=== PATIENT | female | born 1990 | race American Indian/Alaskan Native ===

== ENCOUNTER 2019-02-26 00:44 | Observation (INO) | payer MEDICAID, OTHER, SELFPAY ==
[2019-02-26 01:00] VITALS: BP 128/82; PULSE 98; RESP 16; TEMP 36.7; O2SAT 100
--- NOTE | 2019-02-26 01:05 | DI.US.S_ITS ---
PROCEDURE: US OB >= 14 WEEKS FETUS INDICATIONS: PAIN; NO CARE OUTSIDE/PRIOR DATING DATA: Last menstrual period (LMP): Unknown.. LMP-based estimated date of delivery (FAM): N./A.. First dating scan (date and location): 02/26/19. Estimated date of delivery (FAM) from first dating scan: 04/22/19. TECHNIQUE: Real-time scanning was performed of the fetus, with image documentation and biometric measurements. Endovaginal scanning: No COMPARISON: None. FINDINGS: General: A single living intrauterine gestation is present. Presentation: Breech. Placenta: Placental position is anterior, without previa. Amniotic fluid index: 14.8 cm, normal range is 5-24 cm. heart rate: 153 beats per minute. Maternal cervical canal: 3.9 cm long. Normal lower limit is 2.5 cm. biometrics: Biparietal diameter: 31 weeks 2 days Head circumference: 32 weeks 6 days Abdominal circumference: 33 weeks Femur length: 31 weeks 4 days Estimated gestational age from initial scan: not applicable. Composite gestational age from present scan: 32 weeks 1 day Estimated weight and percentile: 1965 g. Measurement variability for biometric dating: +/- 7 days from 14 weeks to 15 weeks 6 days gestation, +/- 10 days from 16 weeks to 21 weeks 6 days gestation, +/- 2 weeks from 22 weeks to 27 weeks 6 days gestation, +/- 3 weeks for 28 weeks gestation or later. weight reference: 4500 g or EFW >90/95% is considered macrosomia or large for gestational age. EFW <10% is small for gestational age. EFW 5% or less is considered intra-uterine growth restriction. No anatomic survey was performed. IMPRESSION: 1. Single living IUP with mean composite gestational age of 32 weeks 1 day corresponding to ultrasound FAM 04/22/19. 2. No placental abruption. Dictated by: Jamari CLANCY Interpreted: Phill Murrell MD on 02/26/2019 at 8:57 Approved by: Phill Murrell M.D. on 02/26/2019 at 18:30
--- NOTE | 2019-02-26 01:14 | ED.PREGNANCY ---
HPI - General Chief complaint: Abdominal Pain Stated complaint: /abdominal pain/nausous Time Seen by Provider: 02/26/19 01:05 Source: patient Mode of arrival: ambulatory Limitations: no limitations History of Present Illness HPI Narrative: Patient is a 28-year-old female who presents with abdominal pain and back pain. She states that she is . She actually has no idea how far along she is. This is her 3rd she has 2 daughters she did not know she was with either. the 1st 1 she did not know until 7 months along. She has been getting the Depo shot her last menstrual period was in June. She was recently incarcerated for 2 weeks she was released 5 days ago they did a urine while she was there and it was positive. That was the 1st of her knowing she was . She says that she has been having abdominal pain and back pain since starting last night and has progressively gotten worse may be even more frequent. She denies any vaginal bleeding discharge. She also has some chest discomfort but denies shortness of breath or heart palpitations. MD Complaint: abdominal pain Pain Consistency: intermittent Location: abdomen and other (Back) Hx Last Menstrual Period: june 2018 Patient : Yes Related Data Previous Rx's Medication Instructions Recorded hydrocortisone acetate [Anusol-HC] 25 mg R BID #30 supp 07/31/17 Allergies Allergy/AdvReac Type Severity Reaction Status Date / Time Penicillins Allergy Verified 02/26/19 01:10 Review of Systems Review of Systems ROS Unobtainable: All systems reviewed & are unremarkable except as noted in HPI and below Constitutional Denies chills, Denies fever(s), Denies lethargy and Denies weakness Eyes Denies change in vision, Denies eye discharge, Denies irritation and Denies loss of vision Cardiovascular Denies chest pain, Denies irregular heart rhythm, Denies lightheadedness, Denies palpitations, Denies dyspnea, Denies dyspnea on exertion and Denies orthopnea Respiratory Denies cough, Denies dyspnea, Denies dyspnea on exertion and Denies wheezing Gastrointestinal Gastrointestinal: Reports as per HPI and Reports abdominal pain Musculoskeletal Denies back pain, Denies muscle weakness, Denies numbness and Denies tingling Integumentary/Breasts Denies pruritus, Denies erythema, Denies rash and Denies wounds Neurologic Denies loss of vision, Denies numbness, Denies tingling and Denies weakness Endocrine Denies palpitations Allergic/Immunologic Denies wheezing PMFSH - Past Medical History Medical history: Reports no medical history Hx Last Menstrual Period: june 2018 Patient : Yes Exam Initial Vital Signs Initial Vital Signs: Vital Signs Temperature 98.1 F 02/26/19 01:00 Pulse Rate 98 H 02/26/19 01:00 Respiratory Rate 16 02/26/19 01:00 Blood Pressure 128/82 02/26/19 01:00 Pulse Oximetry 100 02/26/19 01:00 GENERAL: Well-appearing, well-nourished and in no acute distress. HEENT: Head atraumatic,EOMI, pupils reactive, face symmetric, moist mucous membranes CARDIOVASCULAR: Regular rate and rhythm without murmurs, rubs or gallops. RESPIRATORY: Breath sounds equal bilaterally, no wheezes rales or rhonchi. ABDOMEN: Soft, gravid, fetus is felt in abdomen. Specifically in right upper quadrant area. Head is not felt in the pelvic area. Abdomen overall is slightly tender across lower part. More tender in the left lower quadrant. No guarding or rebound. EXTREMITIES: Normal range of motion, no clubbing or edema. Neurovascularly intact NEUROLOGICAL: Alert and oriented x4.Normal gait and speech. Cranial nerves II through XII grossly intact. SKIN: Warm, dry, no laceration, no petechiae, no rashes or lesions. Course Orders Ordered: ED Orders 02/26/19 ABO RH Type Stat Complete Blood Count AUTO DIFF Stat Comprehensive Metabolic Panel Stat HIV 1 and 2 Antibody Stat Hepatitis C Virus Antibody Stat Urine Chlamydia Gonorrhea PCR Stat Varicella IgG Antibody Stat 02/26/19 01:05 US OB >= 14 weeks Fetus Stat EKG-12 Lead Stat 02/26/19 01:19 Test Urine Stat Urinalysis and Microscopic Stat Urine Culture Stat Urine Drug Screen, Rapid Stat Vital Signs - 8 hr 02/26/19 01:00 Temperature 98.1 F Pulse Rate 98 H Respiratory Rate 16 Blood Pressure 128/82 Pulse Oximetry 100 MDM - OB/Uterine Contractions Lab Data Attestation: I reviewed the patient's lab results. Lab Results 02/26/19 02/26/19 02/26/19 Range/Units 01:19 01:19 01:19 Urine Color Yellow Urine Appearance Clear Urine pH 7.0 (4.5-8.0) Ur Specific [place] 1.010 (1.000-1.035) Urine Protein Negative (Negative) Urine Glucose (UA) Negative (Negative) g/dL Urine Ketones Negative (NEGATIVE) Urine Occult Blood Trace-lysed (Negative) Urine Nitrate Negative (Negative) Urine Bilirubin Negative (NEGATIVE) Urine Urobilinogen 0.2 (0.2) E.U./dL Ur Leukocyte Esterase 3+ H (NEGATIVE) Urine RBC None seen (0-5/HPF) Urine WBC 0-1/hpf (0-5/HPF) Ur Squamous Epith Cells 1-5 /hpf (0-5/HPF) Urine Bacteria Few (2-10) H (None) Ur Culture Indicated? Specimen cultured Micro UA Comment * Urine Test Positive H (Negative) Urine Opiates Screen Negative (Negative) Ur Oxycodone Screen Negative (Negative) Urine Methadone Screen Negative (Negative) Ur Barbiturates Screen Negative (Negative) U Tricyclic Antidepress Negative (Negative) Ur Phencyclidine Scrn Negative (Negative) Ur Amphetamines Screen Positive H (Negative) U Methamphetamines Scrn Positive H (Negative) Ur MDMA Scrn (Ecstasy) Negative (Negative) U Benzodiazepines Scrn Negative (Negative) Urine Cocaine Screen Negative (Negative) U Marijuana (THC) Screen Negative (Negative) Imaging Data 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 Average ultrasound age 32 weeks 1 day. Estimated date of delivery is 04/22/2019. No placental abruption ECG Data Attestation: I personally reviewed and interpreted this ECG as follows: Prior ECG tracings: not available for review Interpretation: Normal sinus rhythm rate 86 P are interval [address] changes no T-wave inversion. MDM Narrative Medical decision making narrative: Patient is gravid. Fetus felt in abdomen. No care high-risk incarceration. She delivered early with on previous pregnancies and she has been having abdominal pain and back pain ongoing since at least yesterday. I have spoken with center who agrees to see her recommend calling ultrasound in. They will call on-call OB. (US met patient in labor and delivery) Discharge Plan Departure Patient Disposition: Admitted as Observation Clinical Impression: , Abdominal pain affecting Discharge Date/Time: 02/26/19 01:29 Interventions: ED Discharge Assessment Last Done: 02/26/19 01:24 Admit Date/Time: 02/26/19 01:29 Admit Provider: Graciela Serrato
[2019-02-26 01:28] LABS: Pregnancy Test Urine Positive (Negative)
[2019-02-26 01:41] LABS: RBC Urine None Seen (0-5/HPF)
[2019-02-26 01:43] LABS: Appearance Urine UA CLEAR; Bilirubin Urine UA NEGATIVE (NEGATIVE); Color Urine UA YELLOW; Glucose Urine UA NEGATIVE (Negative); Ketones Urine UA NEGATIVE (NEGATIVE); Leukocyte Esterase Urine UA 3+ (NEGATIVE); Nitrite Urine UA NEGATIVE (Negative); Occult Blood Urine UA TRACE-LYSED (Negative); Protein Urine UA NEGATIVE (Negative); Urobilinogen Urine UA 0.2 E.U./dL (0.2)
[2019-02-26 01:49] LABS: Urine Amphetamines Positive (Negative); Urine Barbiturates Negative (Negative); Urine Benzodiazepines Negative (Negative); Urine Cocaine Negative (Negative); Urine MDMA Negative (Negative); Urine Methadone Negative (Negative); Urine Methamphetamines Positive (Negative); Urine Morphine/Opi cutoff 2000 Negative (Negative); Urine Oxycodone Negative (Negative); Urine Phencyclidine Negative (Negative); Urine Tetrahydrocannabinol Negative (Negative); Urine Tricyclic Antidepressant Negative (Negative)
--- NOTE | 2019-02-26 02:13 | PM.OBTRLD ---
Visit Information Visit Information Date of evaluation: 02/26/19 On-call OB Provider: Graciela Serrato Reason for Evaluation: Yes non-stress test non-stress test reason: other (abdominal pain, unknown gestation) Comments/Additional reasons for admission: Patient is a 28-year-old at unknown gestation with no care. She presented to the ER with abdominal pain, nausea and vomiting for 1 day. Urine test was positive in the ER. She was then transferred to the center. LMP sometime in June 2018. She states she had a Depo shot in July 2018. She just got out of correction 5 years ago after being incarcerated 2 weeks. In correction she was told she was . Denies drug use. She has 2 children who are in state custody. Children are 6 years old and 1-1/2 years old. This 6-year-old lives with the patient's grandmother and the 1-1/2-year-old lives in [place]. Both daughters were delivered [facility]. Her first daughter was born at 37 weeks (November 2012) and her second born at 38 weeks (May 2017). 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 Her first she did not find out she was until 7 months. Second she was 4 months when she found out. She states she called the clinic after she got out of correction to schedule an OB appointment and was told she would receive a call back sometime this week. Vital Signs Vital Signs: Vital Signs - 8 hr 02/26/19 01:00 Temperature 98.1 F Pulse Rate 98 H Respiratory Rate 16 Blood Pressure 128/82 Pulse Oximetry 100 PFSH Medical History Chronic back pain (Chronic) Surgical History History of cholecystectomy (Resolved) Social History (Updated 02/26/19 @ 02:27 by Graciela Serrato DO) marital status: unmarried,single number of children: 2 Smoking Status: Former smoker alcohol intake: former substance use type: amphetamines and methamphetamine Social History marital status: unmarried,single number of children: 2 Smoking Status: Former smoker alcohol intake: former substance use type: amphetamines and methamphetamine Review of Systems Constitutional Constitutional: Denies fever(s) Gastrointestinal Gastrointestinal: Reports abdominal pain, Denies change in bowel habits, Reports nausea and Reports vomiting Exam Vital Signs (past 8 hours): - 02/26/19 01:00 Temperature 98.1 F Pulse Rate 98 H Respiratory Rate 16 Blood Pressure 128/82 Pulse Oximetry 100 Oxygen Delivery Method Room Air Const General: cooperative, healthy appearing and comfortable [facility] Head: normal to inspection Ears: hearing grossly normal bilaterally Nose: external nose normal Mouth: oral mucosae normal Eyes General: appearance normal, both eyes and all related structures Neck Neck: normal visual inspection and supple Resp Effort & Inspection: normal respiratory effort Auscultation: clear to auscultation bilaterally, no rales and no wheezes Cardio Rate: regular rate Rhythm: regular rhythm Heart Sounds: S1 normal, S2 normal and no murmurs GI Other: Gravid Uterus Location (Fundal Height): 32 Presentation: full/complete breech Back/Spine/Pelvis Back: normal to inspection Skin General: no rashes or lesions noted Neuro General: alert, awake and oriented x3 Cognition: abnormal cognition (rambling speech) Speech: speech normal Objective Labs Result Diagrams: 02/26/19 02:26 02/26/19 02:26 Labs: Laboratory Results - last 24 hr 02/26/19 02/26/19 02/26/19 01:19 01:19 01:19 Urine Color Yellow Urine Appearance Clear Urine pH 7.0 Ur Specific [place] 1.010 Urine Protein Negative Urine Glucose (UA) Negative Urine Ketones Negative Urine Occult Blood Trace-lysed Urine Nitrate Negative Urine Bilirubin Negative Urine Urobilinogen 0.2 Ur Leukocyte Esterase 3+ H Urine Test Positive H Urine Opiates Screen Negative Ur Oxycodone Screen Negative Urine Methadone Screen Negative Ur Barbiturates Screen Negative U Tricyclic Antidepress Negative Ur Phencyclidine Scrn Negative Ur Amphetamines Screen Positive H U Methamphetamines Scrn Positive H Ur MDMA Scrn (Ecstasy) Negative U Benzodiazepines Scrn Negative Urine Cocaine Screen Negative U Marijuana (THC) Screen Negative Evaluation Evaluation Baseline heart rate: 130 Variability: Moderate (11-25) monitor accelerations: Present monitor decelerations: Absent Uterine Contraction Intensity: Mild Laboratory results: Laboratory Tests 02/26/19 02/26/19 02/26/19 01:19 01:19 01:19 Urine Color Yellow Urine Appearance Clear Urine pH 7.0 Ur Specific [place] 1.010 Urine Protein Negative Urine Glucose (UA) Negative Urine Ketones Negative Urine Occult Blood Trace-lysed Urine Nitrate Negative Urine Bilirubin Negative Urine Urobilinogen 0.2 Ur Leukocyte Esterase 3+ H Urine Test Positive H Urine Opiates Screen Negative Ur Oxycodone Screen Negative Urine Methadone Screen Negative Ur Barbiturates Screen Negative U Tricyclic Antidepress Negative Ur Phencyclidine Scrn Negative Ur Amphetamines Screen Positive H U Methamphetamines Scrn Positive H Ur MDMA Scrn (Ecstasy) Negative U Benzodiazepines Scrn Negative Urine Cocaine Screen Negative U Marijuana (THC) Screen Negative Diagnosis, Plan/Disposition Final Diagnosis (1) 32 weeks gestation of : Current Visit: Yes Status: Acute (2) No care in current : Current Visit: Yes Status: Acute (3) Substance abuse affecting in third trimester, antepartum: Current Visit: Yes Status: Acute Plan/Disposition Plan: 28-year-old at approximately 32 weeks gestation based on ultrasound today. Fetus is breech currently. complicated by no care and substance abuse. Urine drug screen was positive for methamphetamine however patient denied use. Patient presented with abdominal pain, nausea and vomiting. Cervix was 3.9 cm on ultrasound which was reassuring. She was having mild contractions on the monitor which decreased with hydration and nifedipine. Patient felt much better after toast and water with improvement in pain. Urine was negative for signs of infection. labs are pending. Patient reportedly has already called the clinic to establish care. Reminded her to call again when the clinic opens today. OB Disposition: home
--- NOTE | 2019-02-26 02:18 | P.TNLD_ITS ---
Visit Information Visit Information Date of evaluation: 02/26/19 On-call OB Provider: Graciela Serrato Reason for Evaluation: Yes non-stress test non-stress test reason: other (abdominal pain, unknown gestation) Comments/Additional reasons for admission: Patient is a 28-year-old at unknown gestation with no care. She presented to the ER with abdominal pain, nausea and vomiting for 1 day. Urine test was positive in the ER. She was then transferred to the center. LMP sometime in June 2018. She states she had a Depo shot in July 2018. She just got out of [facility] 5 years ago after being incarcerated 2 weeks. In [facility] she was told she was . Denies drug use. She has 2 children who are in state custody. Children are 6 years old and 1-1/2 years old. This 6-year-old lives with the patient's grandmother and the 1-1/2-year-old lives in [place]. Both daughters were delivered [facility]. Her first daughter was born at 37 weeks (November 2012) and her second born at 38 weeks (May 2017). 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 Her first she did not find out she was until 7 months. Second she was 4 months when she found out. She states she called the clinic after she got out of [facility] to schedule an OB appointment and was told she would receive a call back sometime this week. Vital Signs Vital Signs: Vital Signs - 8 hr 02/26/19 01:00 Temperature 98.1 F Pulse Rate 98 H Respiratory Rate 16 Blood Pressure 128/82 Pulse Oximetry 100 PFSH Medical History Chronic back pain (Chronic) Surgical History History of cholecystectomy (Resolved) Social History (Updated 02/26/19 @ 02:27 by Graciela Serrato DO) marital status: unmarried,single number of children: 2 Smoking Status: Former smoker alcohol intake: former substance use type: amphetamines and methamphetamine Social History marital status: unmarried,single number of children: 2 Smoking Status: Former smoker alcohol intake: former substance use type: amphetamines and methamphetamine Review of Systems Constitutional Constitutional: Denies fever(s) Gastrointestinal Gastrointestinal: Reports abdominal pain, Denies change in bowel habits, Reports nausea and Reports vomiting Exam Vital Signs (past 8 hours): - 02/26/19 01:00 Temperature 98.1 F Pulse Rate 98 H Respiratory Rate 16 Blood Pressure 128/82 Pulse Oximetry 100 Oxygen Delivery Method Room Air Const General: cooperative, healthy appearing and comfortable [facility] Head: normal to inspection Ears: hearing grossly normal bilaterally Nose: external nose normal Mouth: oral mucosae normal Eyes General: appearance normal, both eyes and all related structures Neck Neck: normal visual inspection and supple Resp Effort & Inspection: normal respiratory effort Auscultation: clear to auscultation bilaterally, no rales and no wheezes Cardio Rate: regular rate Rhythm: regular rhythm Heart Sounds: S1 normal, S2 normal and no murmurs GI Other: Gravid Uterus Location (Fundal Height): 32 Presentation: full/complete breech Back/Spine/Pelvis Back: normal to inspection Skin General: no rashes or lesions noted Neuro General: alert, awake and oriented x3 Cognition: abnormal cognition (rambling speech) Speech: speech normal Objective Labs Result Diagrams: 02/26/19 02:26 02/26/19 02:26 Labs: Laboratory Results - last 24 hr 02/26/19 02/26/19 02/26/19 01:19 01:19 01:19 Urine Color Yellow Urine Appearance Clear Urine pH 7.0 Ur Specific [place] 1.010 Urine Protein Negative Urine Glucose (UA) Negative Urine Ketones Negative Urine Occult Blood Trace-lysed Urine Nitrate Negative Urine Bilirubin Negative Urine Urobilinogen 0.2 Ur Leukocyte Esterase 3+ H Urine Test Positive H Urine Opiates Screen Negative Ur Oxycodone Screen Negative Urine Methadone Screen Negative Ur Barbiturates Screen Negative U Tricyclic Antidepress Negative Ur Phencyclidine Scrn Negative Ur Amphetamines Screen Positive H U Methamphetamines Scrn Positive H Ur MDMA Scrn (Ecstasy) Negative U Benzodiazepines Scrn Negative Urine Cocaine Screen Negative U Marijuana (THC) Screen Negative Evaluation Evaluation Baseline heart rate: 130 Variability: Moderate (11-25) monitor accelerations: Present monitor decelerations: Absent Uterine Contraction Intensity: Mild Laboratory results: Laboratory Tests 02/26/19 02/26/19 02/26/19 01:19 01:19 01:19 Urine Color Yellow Urine Appearance Clear Urine pH 7.0 Ur Specific [place] 1.010 Urine Protein Negative Urine Glucose (UA) Negative Urine Ketones Negative Urine Occult Blood Trace-lysed Urine Nitrate Negative Urine Bilirubin Negative Urine Urobilinogen 0.2 Ur Leukocyte Esterase 3+ H Urine Test Positive H Urine Opiates Screen Negative Ur Oxycodone Screen Negative Urine Methadone Screen Negative Ur Barbiturates Screen Negative U Tricyclic Antidepress Negative Ur Phencyclidine Scrn Negative Ur Amphetamines Screen Positive H U Methamphetamines Scrn Positive H Ur MDMA Scrn (Ecstasy) Negative U Benzodiazepines Scrn Negative Urine Cocaine Screen Negative U Marijuana (THC) Screen Negative Diagnosis, Plan/Disposition Final Diagnosis (1) 32 weeks gestation of : Current Visit: Yes Status: Acute (2) No care in current : Current Visit: Yes Status: Acute (3) Substance abuse affecting in third trimester, antepartum: Current Visit: Yes Status: Acute Plan/Disposition Plan: 28-year-old at approximately 32 weeks gestation based on ultrasound today. Fetus is breech currently. complicated by no care and substance abuse. Urine drug screen was positive for methamphetamine however patient denied use. Patient presented with abdominal pain, nausea and vomiting. Cervix was 3.9 cm on ultrasound which was reassuring. She was having mild contractions on the monitor which decreased with hydration and nifedipine. Patient felt much better after toast and water with improvement in pain. Urine was negative for signs of infection. labs are pending. Patient reportedly has already called the clinic to establish care. Reminded her to call again when the clinic opens today. OB Disposition: home
[2019-02-26 02:25] LABS: WBC Urine 0-1/HPF (0-5/HPF)
[2019-02-26 02:26] LABS: Bacteria Urine Few (2-10); Squamous Epithelial Cell Urine 1-5 /HPF (0-5/HPF)
[2019-02-26 02:27] LABS: Culture Indicated Urine Specimen Cultured
[2019-02-26 02:45] LABS: Add Manual Diff / Slide Review NO; Basophils Absolute Auto 0 /uL (0-100); Basophils Percent Auto 0.2 % (0-2); Eosinophils Absolute Auto 0 /uL (0-450); Eosinophils Percent Auto 0.3 % (2-4); Hematocrit 31.9 % (36-46); Hemoglobin 10.9 g/dL (12.0-16.0); Lymphocytes Absolute Auto 3000 /uL (1100-4500); Lymphocytes Percent Auto 26.8 % (25-40); Mean Corpuscular HGB Conc 34.2 % (30-36); Mean Corpuscular Hemoglobin 28.8 PG (26-34); Mean Corpuscular Volume 84.3 fL (80-100); Monocytes Absolute Auto 400 /uL (0-900); Neutrophils Absolute Auto 7700 /uL (1500-7000); Neutrophils Percent Auto 68.7 % (50-75); Platelet Count 395 X10^3/uL (150-400); Red Blood Cell Count 3.78 X10^6/uL (4.0-5.2); Red Cell Distribution Width 13.2 % (11.6-14.8); White Blood Cell Count 11.1 X10^3/uL (4.5-11.0)
[2019-02-26] MEDS: NIFEdipine 10 MG CAPSULE PO ×3 (02:50→03:37)
[2019-02-26 02:51] LABS: Alanine Aminotransferase 22 IU/L (9-52); Albumin 3.4 g/dL (3.5-5.0); Alkaline Phosphatase 189 U/L (38-126); Aspartate Aminotransferase 20 IU/L (14-36); Bilirubin Total 0.3 mg/dL (0.2-1.3); Blood Urea Nitrogen 6 mg/dL (7-17); Calcium 8.5 mg/dL (8.4-10.2); Carbon Dioxide 25 mmol/L (22-32); Chloride 106 mmol/L (98-107); Estimated Glomerular Filt Rate > 60.0 mL/min (>60); Globulin 3.5 g/dL (1.7-4.1); Glucose 88 mg/dL (70-100); HEMOLYSIS < 15 (0-50); Potassium 3.3 mmol/L (3.4-5.1); Sodium 137 mmol/L (137-145); Total Protein 6.9 g/dL (6.3-8.2)
[2019-02-26 03:42] LABS: Hepatitis B Surface Antigen NEGATIVE s/c (NEGATIVE); Rubella Antibody IgG 6.2 IU/mL (>15)
[2019-02-26 03:50] LABS: HIV 1 and 2 Antibody NEGATIVE (NEGATIVE)
[2019-02-26 03:56] LABS: Hep C Virus Ab w/Reflex Quant NEGATIVE s/c (NEGATIVE)
[2019-02-28 13:38] LABS: RPR Screen Nonreactive (Nonreactive)
== END 2019-02-26 04:15 | disposition home or self-care (01) ==
LOC: ED 01:05 → LABOR 01:30
PROVIDERS: Admitting Provider Family Medicine; Emergency Provider Emergency Medicine; Visit Provider Family Medicine
DX: O99.323 Drug use complicating pregnancy, third trimester (principal); O09.33 Supervision of pregnancy with insufficient antenatal care, third trimester; Z3A.32 32 weeks gestation of pregnancy
CPT/HCPCS: 36415; 59025; 59050; 76811; 80053; 80055; 80305; 81001; 81025; 86703; 86787; 86803; 86900; 86901; 87086; 93005; 99282; G0378

== ENCOUNTER 2022-10-27 19:53 | Emergency (ER) | payer OTHER, MEDICAID, SELFPAY ==
[2022-10-27 20:21] VITALS: BP 118/77; PULSE 83; RESP 19; TEMP 36.3; O2SAT 100; BMI 37.1
[2022-10-27 21:32] LABS: Influenza A - CEPHEID Flu A NEGATIVE (NEGATIVE); Influenza B - CEPHEID Flu B NEGATIVE (NEGATIVE); Respiratory Syncytial Virus Negative (Negative)
[2022-10-27 21:38] LABS: COVID-19 CEPHEID 4-PLEX PCR POSITIVE (Negative)
[2022-10-27 22:31] VITALS: BP 116/37; PULSE 80; O2SAT 99
--- NOTE | 2022-10-27 22:33 | ED_ITS ---
HPI - General Adult General Chief complaint: Upper Respiratory Symptoms Stated complaint: cough, itchy throat Time Seen by Provider: 10/27/22 22:29 Source: patient Mode of arrival: Ambulatory Limitations: no limitations History of Present Illness HPI narrative: Patient is a 32-year-old female who is here for evaluation of 3 days of cough itchy throat and body aches. Patient's family who is here in the emergency department also has similar symptoms but has had it for 5 days. She is not tried anything for the symptoms prior to arrival. Related Data Previous Rx's Medication Instructions Recorded hydrocortisone acetate 25 mg 25 mg R BID #30 supp 07/31/17 rectal suppository (Anusol-HC) Allergies Allergy/AdvReac Type Severity Reaction Status Date / Time Penicillins Allergy Verified 10/27/22 20:20 Review of Systems Constitutional Constitutional: Reports system reviewed and no additional complaints, except as documented ENT Ears, Nose, Mouth, and Throat: Reports system reviewed and no additional complaints, except as documented Respiratory Respiratory: Reports system reviewed and no additional complaints, except as doc umented Patient History Medical History (Updated 10/28/22 @ 02:37 by Reynaldo Elizondo DO) Chronic back pain Surgical History History of cholecystectomy Social History marital status: unmarried,single number of children: 2 Smoking Status: Former smoker alcohol intake: former substance use type: amphetamines and methamphetamine Smoking Status: Former smoker alcohol intake frequency: 0-2 drinks per day Substance Use Type: does not use Exam Initial Vital Signs Initial Vital Signs: Vital Signs Temperature 97.4 F L 10/27/22 20:21 Pulse Rate 83 10/27/22 20:21 Respiratory Rate 19 10/27/22 20:21 Blood Pressure 118/77 10/27/22 20:21 Pulse Oximetry 100 10/27/22 20:21 Oxygen Delivery Method 10/27/22 20:21 HENMT Head: normal to inspection and normocephalic Resp Effort & Inspection: normal respiratory effort Auscultation: clear to auscultation bilaterally Skin General: no rashes or lesions noted Extrem General: normal to inspection Course Orders Ordered: ED Orders 10/27/22 20:25 Covid-19 + FLU A/B + RSV - PCR Stat Vital Signs Vital signs: Vital Signs - 8 hr 10/27/22 20:21 10/27/22 22:31 Temperature 97.4 F L Pulse Rate 83 80 Respiratory Rate 19 Blood Pressure 118/77 116/37 L Pulse Oximetry 100 99 Oxygen Delivery Method Room Air Room Air Medical Decision Making Differential Diagnosis Differential Diagnosis: Pneumonia, upper respiratory infection, sinusitis, and others Lab Data Lab results reviewed: Yes I reviewed the patient's lab results. Labs: Lab Results 10/27/22 Range/Units 20:25 SARS-CoV-2 (PCR) Positive H (Negative) Influenza A (RT-PCR) Flu a negative (NEGATIVE) Influenza B (RT-PCR) Flu b negative (NEGATIVE) RSV (PCR) Negative (Negative) MDM Narrative Medical decision making narrative: Patient is COVID positive I did discuss this with her. No indication for antibiotics. Lungs are clear. No indication for radiologic studies. Low suspicion for pneumonia. We discussed return precautions follow-up instructions. She expressed understanding and agreement. After discharge it was noted that the diagnosis of ?substance abuse affecting in 3rd trimester, antepartum was placed does when if her clinical impressions. This is incorrect. It was placed inadvertently. Her only clinical impression should be COVID-19. Discharge Plan Departure Patient Disposition: Home Clinical Impression: COVID-19 Instructions: COVID-19 Activity Restrictions/Additional Instructions: Your COVID test today was positive. Recommend that you stay hydrated and take Tylenol for any fevers. Follow all CDC guidelines with regard to quarantine. Contact your primary doctor for follow-up. Prescriptions: No Action hydrocortisone acetate [Anusol-HC] 25 MG suppository 25 mg R BID Qty: 30 3RF Stand Alone Forms: Patient Portal/API
== END 2022-10-27 22:41 | disposition home or self-care (01) ==
PROVIDERS: Emergency Provider Emergency Medicine
DX: U07.1 COVID-19 (principal)
CPT/HCPCS: 0241U; 99281; 99282

== ENCOUNTER 2022-10-29 18:46 | Emergency (ER) | payer OTHER, MEDICAID, SELFPAY ==
[2022-10-29 18:54] VITALS: BP 143/73; PULSE 88; RESP 18; TEMP 36.8; O2SAT 99; BMI 38.2
[2022-10-29] MEDS: ACETAMINOPHEN 325 MG TABLET 975 MG PO (19:03)
[2022-10-29] MEDS: ONDANSETRON 4 MG ODT SL (19:03)
--- NOTE | 2022-10-29 19:04 | ED_ITS ---
HPI - Nausea/Vomiting/Diarrhea General Chief complaint: Nausea/Vomiting/Diarrhea Stated complaint: Nausea, Covid+, headaches, body aches Time Seen by Provider: 10/29/22 19:02 Source: patient Mode of arrival: Ambulatory History of Present Illness HPI Narrative: 32-year-old female former smoker without chronic medical problems presents 5 days into a known COVID diagnosis. Overall she has been unwell for about 7 days and was diagnosed with COVID on Sunday. She is been taking ibuprofen and complains of body aches, nausea and chills. She's had nausea, but no significant vomiting. She denies any fever, but has had chills. She has a mild headache which is without any obvious provocation or palliation. She denies neck pain. She's had some hacking cough, but denies significant shortness of breath and certainly no sputum. She has no abdominal pain, dysuria, frequency, urgency, and no abdominal pain. Related Data Previous Rx's Medication Instructions Recorded hydrocortisone acetate 25 mg 25 mg R BID #30 supp 07/31/17 rectal suppository (Anusol-HC) ondansetron 4 mg disintegrating 4 mg PO TID-QID PRN nausea and 10/29/22 tablet vomiting #20 tabs pantoprazole 40 mg tablet,delayed 40 mg PO DAILY #30 tabs 10/29/22 release (Protonix) Allergies Allergy/AdvReac Type Severity Reaction Status Date / Time Penicillins Allergy Verified 10/27/22 20:20 Review of Systems Review of Systems Narrative: GENERAL: See HPI HEENT: See HPI RESPIRATORY: Denies dyspnea, cough, wheezing, hemoptysis, sputum. CARDIOVASCULAR: Denies chest pain, palpitations, orthopnea, edema, GASTROINTESTINAL: See HPI : See HPI MUSCULOSKELETAL: denies weakness, joint pain, or bony pain SKIN: Denies rash, skin lesions, or other NEUROLOGIC: Denies weakness, headache, numbness, change in speech, confusion, seizures, incoordination. PSYCHIATRIC: No concerning psychosocial issues. 12 point review of systems is negative except for those stated above Patient History Medical History Chronic back pain Surgical History History of cholecystectomy Social History (Reviewed 10/29/22 @ 19:28 by MILTON Lowery marital status: unmarried,single number of children: 2 Smoking Status: Former smoker alcohol intake: former substance use type: amphetamines and methamphetamine Smoking Status: Former smoker alcohol intake frequency: 0-2 drinks per day Substance Use Type: does not use Exam Narrative Exam Narrative: GENERAL: 32 year old patient appears stated age. Well-developed patient, in mild distress. HEAD: Atraumatic. Normocephalic. EYES: Pupils equal round and reactive. Extraocular motions intact. No scleral icterus. No injection or drainage. ENT: Moist mucous membranes Nose without bleeding, purulent drainage. Throat without erythema, tonsillar hypertrophy or exudate. Airway patent. NECK: Trachea midline. Non tender, no meningeal signs CARDIOVASCULAR: Regular rate and rhythm without murmurs, gallops, or rubs. RESPIRATORY: Clear to auscultation. Breath sounds equal bilaterally. No wheezes, rales, or rhonchi. No signs of respiratory distress such as tachypnea or hypoxemia GASTROINTESTINAL: Soft, nontender, bowel sounds present in all 4 quadrants EXTREMITIES: No edema or joint tenderness. BACK: Nontender without deformity or crepitance. No flank tenderness. NEURO: AOx3. SKIN: No rash or erythema of visible areas Initial Vital Signs Initial Vital Signs: Vital Signs Temperature 98.2 F 10/29/22 18:54 Pulse Rate 88 10/29/22 18:54 Respiratory Rate 18 10/29/22 18:54 Blood Pressure 143/73 H 10/29/22 18:54 Pulse Oximetry 99 10/29/22 18:54 Oxygen Delivery Method 10/29/22 18:54 Course Orders Ordered: Discontinued Medications Acetaminophen (Acetaminophen 325 Mg Tablet) 975 mg PO NOW ONE Stop: 10/29/22 19:00 Last Admin: 10/29/22 19:03 Dose: 975 mg Documented By: KEEGAN Ondansetron HCl (Ondansetron 4 Mg Odt) 4 mg SL NOW ONE Stop: 10/29/22 19:00 Last Admin: 10/29/22 19:03 Dose: 4 mg Documented By: KEEGAN Vital Signs Vital signs: Vital Signs - 8 hr 10/29/22 18:54 Temperature 98.2 F Pulse Rate 88 Respiratory Rate 18 Blood Pressure 143/73 H Pulse Oximetry 99 Oxygen Delivery Method Room Air MDM - Nausea/Vomiting/Diarrhea Lab Data Labs: Point of Care Testing Test Results Negative Urine Dip Bedside Urine Glucose Negative Bedside Urine Bilirubin - Negative Bedside Urine Ketone - Negative Urine Specific [place] 1.02 Bedside Urine Occult Blood - Negative Bedside Urine pH 6.5 Bedside Urine Protein - Negative Bedside Urine Urobilinogen - Negative Bedside Urine Nitrite - Negative Bedside Urine Leukocytes - Negative Esterase MDM Narrative Medical decision making narrative: [32-year-old female with mild widespread symptoms, known COVID and primary complaint of nausea] Multiple etiologies for patient's symptoms considered including, but not limited to: [COVID, bowel obstruction, UTI, versus other] Prior Charts reviewed: Including recent ED note Labs reviewed and interpreted by myself: No sign UTI, . No ketones, specific gravity slightly suggestive concentrated urine Patient's symptoms improved over duration of stay with above-stated therapies. Findings and discharge diagnosis discussed with patient/family followed by verbalization of understanding Return precautions discussed with patient/family whom verbalize understanding of diagnosis and plan Discharge Plan Departure Patient Disposition: Home Clinical Impression: COVID-19 Instructions: DI for Nausea -- Adult Activity Restrictions/Additional Instructions: *You have been diagnosed with [ COVID-19] *What to do: ?* per recommendations from the CDC and the [facility] Department of Health ?* stay home except to get medical care. ?Restrict activities outside your home, except for getting medical care. ?Do not go to work, school, or public areas. ?Avoid using public transportation, ride sharing, or taxis. ?* separate yourself from other people in your home. ?* call ahead before visiting your doctor ?* Wear a facemask ?* Cover your coughs and sneezes ?* Clean your hands often ?* Avoid sharing household items ?* Clean all high-touch services every day ?* Monitor your symptoms and seek prompt medical attention if your illness is worsening, particularly with difficulty in breathing. You may discontinue your isolation when: ?1. You have been fever-free for at least 24 hours without the use of fever reducing medication, AND ?2. Your symptoms are getting better, AND ?3. At least 5 days have passed since symptoms first appeared ?4. If you have fever, continue to stay home until fever resolves Individuals with laboratory confirmed COVID-19 who have not had any symptoms may discontinue home isolation when at least 5 days have passed since the date of their first COVID-19 diagnostic test and have had no subsequent illness You should notifiy any friends and family that have been in close contact *If up to date on COVID Vaccines, then they do not need to quarantine unless symptoms develop. Get tested on day 5 (or sooner if symptoms develop). Take precautions and watch for symptoms until day 10 *If NOT up to date on COVID Vaccines, then CDC recommends quarantine for at least 5 full days. Wear a well fitted mask at home if you must be around others. If they ?develop symptoms they should get tested. If they remain asymptomatic they should get tested on day 5. They should take precautions and monitor for symptoms until day 10. *What to do: *Please continue to take your regular medications as directed. [x ] New medication prescriptions sent to your pharmacy: [[facility] in [place] ] *Please consider a clear liquid diet for the next 24-48 hours and then slowly advance to regular as tolerated. Also, try to avoid alcohol, nicotine, caffeine, spicy, acidic or fatty foods as this may worsen your symptoms Prescriptions: New pantoprazole [Protonix] 40 mg tablet,delayed release (DR/EC) 40 mg PO DAILY Qty: 30 0RF ondansetron 4 mg tablet,disintegrating 4 mg PO TID-QID PRN (Reason: nausea and vomiting) Qty: 20 0RF No Action hydrocortisone acetate [Anusol-HC] 25 MG suppository 25 mg R BID Qty: 30 3RF Stand Alone Forms: Patient Portal/API
== END 2022-10-29 19:43 | disposition home or self-care (01) ==
PROVIDERS: Emergency Provider Emergency Medicine
DX: U07.1 COVID-19 (principal)
CPT/HCPCS: 81003; 81025; 99283

== ENCOUNTER 2023-08-04 23:09 | Emergency (ER) | payer OTHER, MEDICAID, SELFPAY ==
--- NOTE | 2023-08-04 23:18 | ED.GENADULT ---
HPI - General Adult General Chief complaint: Dental/Oral Stated complaint: right jaw pain x2 hours Time Seen by Provider: 08/04/23 23:13 Source: patient Mode of arrival: Ambulatory Limitations: no limitations History of Present Illness HPI narrative: Patient is a 33-year-old female who is here for evaluation of right lower posterior tooth pain. She states she bit into a piece of pie and felt immediate discomfort. States she felt like her tooth cracked. She had pain that went up into the side of her head. She is not tried anything for the symptoms prior to arrival. Related Data Previous Rx's Medication Instructions Recorded hydrocortisone acetate 25 mg 25 mg R BID #30 supp 07/31/17 rectal suppository (Anusol-HC) ondansetron 4 mg disintegrating 4 mg PO TID-QID PRN nausea and 10/29/22 tablet vomiting #20 tabs pantoprazole 40 mg tablet,delayed 40 mg PO DAILY #30 tabs 10/29/22 release (Protonix) Allergies Allergy/AdvReac Type Severity Reaction Status Date / Time Penicillins Allergy Verified 10/27/22 20:20 Review of Systems ENT Ears, Nose, Mouth, and Throat: Reports system reviewed and no additional complaints, except as documented Integumentary/Breasts Skin/Breast: Reports system reviewed and no additional complaints, except as documented Neurologic Neurologic: Reports system reviewed and no additional complaints, except as documented Patient History Medical History Chronic back pain Surgical History History of cholecystectomy Social History marital status: unmarried,single number of children: 2 Smoking Status: Current every day smoker alcohol intake: former substance use type: amphetamines and methamphetamine Smoking Status: Former smoker alcohol intake frequency: 0-2 drinks per day Substance Use Type: does not use Exam Initial Vital Signs Initial Vital Signs: Vital Signs Temperature 98.5 F 08/04/23 23:20 Pulse Rate 87 08/04/23 23:20 Respiratory Rate 18 08/04/23 23:20 Blood Pressure 134/92 H 08/04/23 23:20 Pulse Oximetry 98 08/04/23 23:20 Oxygen Delivery Method Room Air 08/04/23 23:20 Const General: No ill appearing HENWA Mouth: oral mucosae normal and moist mucous membranes Teeth and gingiva: poor dentition Skin General: no rashes or lesions noted Course Orders Ordered: Discontinued Medications Hydrocodone Bitart/Acetaminophen (Hydrocodone/Acet 5/325 Tablet) 1 tab PO NOW ONE Stop: 08/04/23 23:19 Last Admin: 08/04/23 23:23 Dose: 1 tab Documented By: SB Hydrocodone Bitart/Acetaminophen (Hydrocodone/Acet 5/325 Prepack) 1 bottle MISC SEEINSTR ONE Stop: 08/04/23 23:34 Vital Signs Vital signs: Vital Signs - 8 hr 08/04/23 23:20 Temperature 98.5 F Pulse Rate 87 Respiratory Rate 18 Blood Pressure 134/92 H Pulse Oximetry 98 Oxygen Delivery Method Room Air Medical Decision Making MDM Narrative Medical decision making narrative: Patient with poor dentition with multiple missing teeth and most likely multiple caries. She does have discomfort on the left lower premolar and 1st molar. Her 2nd 3rd molar are missing. There is no signs of any infection. Patient was given pain medication here in the ER. She was instructed that she does need to follow-up with a dental provider for definitive treatment. No indication for antibiotics based on her presentation today. Discharge Plan Departure Patient Disposition: Home Clinical Impression: Toothache Instructions: DI for Dental Pain Activity Restrictions/Additional Instructions: I do recommend that you take ibuprofen as this can be very helpful for dental pain. You can use the pain medication as needed. You are going to need to follow-up with a dentist. Recommend that you make contact with one on Sunday. Return to the emergency department for new symptoms Prescriptions: No Action hydrocortisone acetate [Anusol-HC] 25 MG suppository 25 mg R BID Qty: 30 3RF pantoprazole [Protonix] 40 mg tablet,delayed release (DR/EC) 40 mg PO DAILY Qty: 30 0RF ondansetron 4 mg tablet,disintegrating 4 mg PO TID-QID PRN (Reason: nausea and vomiting) Qty: 20 0RF Stand Alone Forms: Patient Portal/API
[2023-08-04 23:20] VITALS: BP 134/92; PULSE 87; RESP 18; TEMP 36.9; O2SAT 98; BMI 40.3
[2023-08-04] MEDS: HYDROCODONE/ACET 5/325 TABLET 1 TAB PO (23:23)
[2023-08-04] MEDS: HYDROCODONE/ACET 5/325 PREPACK 1 BOTTLE MISC (23:41)
== END 2023-08-04 23:40 | disposition home or self-care (01) ==
PROVIDERS: Emergency Provider Emergency Medicine
DX: K08.89 Other specified disorders of teeth and supporting structures (principal)
CPT/HCPCS: 99283

== ENCOUNTER 2023-11-15 22:39 | Emergency (ER) | payer OTHER, MEDICAID, SELFPAY ==
[2023-11-15 22:43] VITALS: BP 124/64; PULSE 89; RESP 20; TEMP 37.1; O2SAT 99; BMI 37.9
== END 2023-11-15 23:10 | disposition left against medical advice (07) ==
PROVIDERS: Emergency Provider Emergency Medicine
CPT/HCPCS: 99281

== ENCOUNTER 2025-04-04 21:12 | Emergency (ER) | payer OTHER, MEDICAID, SELFPAY ==
[2025-04-04 21:24] VITALS: BP 133/81; PULSE 105; RESP 26; TEMP 36.7; O2SAT 98; BMI 31.9
--- NOTE | 2025-04-04 21:40 | EKG_ITS ---
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
[2025-04-04 21:51] LABS: Add Manual Diff / Slide Review NO; Hematocrit 37.7 % (36-46); Hemoglobin 12.6 g/dL (12.0-16.0); Lymphocytes Absolute Auto 2800 /uL (1100-4500); Mean Corpuscular HGB Conc 33.4 % (30-36); Mean Corpuscular Hemoglobin 29.2 PG (26-34); Mean Corpuscular Volume 87.6 fL (80-100); Platelet Count 306 X10^3/uL (150-400)
[2025-04-04 22:01] LABS: Alanine Aminotransferase 15 IU/L (<35); Albumin 3.9 g/dL (3.5-5.0); Albumin Globulin Ratio 1.2 (1.0-2.8); Alkaline Phosphatase 117 U/L (38-126); Blood Urea Nitrogen 7 mg/dL (7-17); Calcium 8.6 mg/dL (8.4-10.2); Carbon Dioxide 30 mmol/L (22-32); Chloride 106 mmol/L (98-107); Estimated Glomerular Filt Rate > 60 mL/min (>60); Globulin 3.3 g/dL (1.7-4.1); Glucose 87 mg/dL (70-99); HEMOLYSIS < 15 (0-50); Lipase 78 U/L (23-300); Potassium 4.1 mmol/L (3.4-5.1); Sodium 139 mmol/L (137-145); Total Protein 7.2 g/dL (6.3-8.2)
[2025-04-04 22:24] LABS: COVID-19 CEPHEID 4-PLEX PCR Negative (Negative); Influenza A - CEPHEID Flu A NEGATIVE (NEGATIVE); Influenza B - CEPHEID Flu B NEGATIVE (NEGATIVE)
[2025-04-04 22:58] LABS: HCG Quantitative /Beta subunit < 2.39 mIU/mL
[2025-04-04 23:40] VITALS: BP 112/68; PULSE 94; RESP 16; O2SAT 100
[2025-04-05] VITALS (14 sets, daily range): BP systolic 112–124; BP diastolic 60–92; PULSE 81–100; RESP 14–16; O2SAT 98–100
--- NOTE | 2025-04-05 02:47 | PC.NURSE ---
Pt sleeping at this time.
--- NOTE | 2025-04-05 03:42 | ED_ITS ---
HPI - Nausea/Vomiting/Diarrhea General Chief complaint: Nausea/Vomiting/Diarrhea Stated complaint: tingling on hands, dizzy,weakness x4days Time Seen by Provider: 04/05/25 03:38 Source: patient Mode of arrival: Ambulatory History of Present Illness HPI Narrative: 35-year-old female with 5 days duration of dry cough with nausea and vomiting, also loose stools without black or red color, no recent antibiotic exposure. Denies chest pain or shortness of breath. History of pantoprazole use. No history of chronic abdominal problems, Crohn's disease, inflammatory bowel disease, ulcerative colitis. She can not recall persons around her with similar respiratory and GI symptoms recent. Related Data Previous Rx's ?Medication ?Instructions ?Recorded hydrocortisone acetate 25 mg 25 mg R BID #30 supp 07/03 10/17 rectal suppository (Anusol-HC) ondansetron 4 mg disintegrating 4 mg PO TID-QID PRN na usea and 10/29/22 tablet vomiting #20 tabs pantoprazole 40 mg tablet,delayed 40 mg PO DAILY #30 t abs 10/29/22 release (Protonix) Allergies Allergy/AdvReac Type Severity Reaction Status Date / Time Penicillins Allergy Verified 04/04/25 21:25 Patient History Medical History (Updated 04/05/25 @ 03:51 by Arsalan De Jesus MD) Chronic back pain Surgical History History of cholecystectomy Social History marital status: unmarried,single number of children: 2 alcohol intake: 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 HEAD: Atraumatic. Normocephalic. EYES: Pupils equal round and reactive. Extraocular motions intact. No scleral icterus. No injection or drainage. ENT: Nose without bleeding, purulent drainage. Throat without erythema, tonsillar hypertrophy or exudate. Airway patent. NECK: Trachea midline. Non tender CARDIOVASCULAR: Regular rate and rhythm without murmurs, gallops, or rubs. RESPIRATORY: Clear to auscultation. Breath sounds equal bilaterally. No wheezes, rales, or rhonchi. GASTROINTESTINAL: Abdomen soft, non-tender, nondistended. EXTREMITIES: No edema or joint tenderness. BACK: Nontender without deformity or crepitance. No flank tenderness. NEURO: AOx3. Motor functions grossly nonfocal. SKIN: No rash or erythema of visible areas Initial Vital Signs Initial Vital Signs: Vital Signs Temperature 98.1 F 04/04/25 21:24 Pulse Rate 105 H 04/04/25 21:24 Respiratory Rate 26 H 04/04/25 21:24 Blood Pressure 133/81 04/04/25 21:24 Pulse Oximetry 98 04/04/25 21:24 Oxygen Delivery Method Room Air 04/04/25 21:24 Course Orders Ordered: Discontinued Medications Ondansetron HCl (Ondansetron 4 Mg/2 Ml Inj) 4 mg IV NOW PRN PRN Reason: Nausea And Vomiting Ondansetron HCl (Ondansetron 4 Mg Odt) 4 mg PO NOW PRN PRN Reason: Nausea And Vomiting Ondansetron HCl (Ondansetron 4 Mg Odt Prepack) 1 bottle MISC DIRECTED ONE Stop: 04/05/25 03:59 Last Admin: 04/05/25 05:19 Dose: 1 bottle Documented By: TRACY Vital Signs Vital signs: Vital Signs - 8 hr 04/05/25 01:00 04/05/25 01:30 04/05/25 02:00 Pulse Rate 85 84 88 Respiratory Rate 15 Blood Pressure 114/73 124/60 113/62 Pulse Oximetry 100 100 99 Oxygen Delivery Method 04/05/25 02:43 04/05/25 02:55 04/05/25 03:00 Pulse Rate 91 H 89 90 Respiratory Rate 15 Blood Pressure 112/92 H Pulse Oximetry 99 100 100 Oxygen Delivery Method 04/05/25 03:00 04/05/25 03:30 04/05/25 03:30 Pulse Rate 88 Respiratory Rate Blood Pressure 116/64 123/72 Pulse Oximetry 100 Oxygen Delivery Method 04/05/25 04:00 04/05/25 04:00 04/05/25 04:30 Pulse Rate 85 81 Respiratory Rate Blood Pressure 118/68 Pulse Oximetry 98 99 Oxygen Delivery Method Room Air 04/05/25 04:30 04/05/25 05:00 04/05/25 05:01 Pulse Rate 85 81 Respiratory Rate Blood Pressure 122/65 Pulse Oximetry 100 100 Oxygen Delivery Method Room Air 04/05/25 05:21 04/05/25 05:21 Pulse Rate 100 H Respiratory Rate Blood Pressure 123/71 Pulse Oximetry 100 Oxygen Delivery Method MDM - Nausea/Vomiting/Diarrhea Lab Data Attestation: I reviewed the patient's lab results. Lab results narrative: White blood cell count 9100, hemoglobin 12.6, platelets adequate. Glucose 87. Normal renal function, serum CO2, electrolytes. Normal liver functions. Lipase normal. COVID flu RSV negative. UA dip negative including for ketones. Urine negative. 04/04/25 21:38 04/04/25 21:38 Labs: Lab Results 04/04/25 Range/Units 21:38 WBC 9.1 (4.5-11.0) X10^3/uL RBC 4.31 (4.0-5.2) X10^6/uL Hgb 12.6 (12.0-16.0) g/dL Hct 37.7 (36-46) % MCV 87.6 (80-100) fL MCH 29.2 (26-34) PG MCHC 33.4 (30-36) % RDW 13.0 (11.6-14.8) % Plt Count 306 (150-400) X10^3/uL Neut % (Auto) 61.8 (50-75) % Lymph % (Auto) 30.9 (25-40) % Harrison % (Auto) 5.8 (3-14) % Eos % (Auto) 0.9 L (2-4) % Baso % (Auto) 0.6 (0-2) % Neut # (Auto) 5600 (7588-5125) /uL Lymph # (Auto) 2800 (3146-6346) /uL Harrison # (Auto) 500 (0-900) /uL Eos # (Auto) 100 (0-450) /uL Baso # (Auto) 100 (0-100) /uL Sodium 139 (137-145) mmol/L Potassium 4.1 (3.4-5.1) mmol/L Chloride 106 (98-107) mmol/L Carbon Dioxide 30 (22-32) mmol/L BUN 7 (7-17) mg/dL Creatinine 0.81 (0.52-1.04) mg/dL Estimated GFR > 60 (>60) mL/min BUN/Creatinine Ratio 8.6 (6-22) Glucose 87 (70-99) mg/dL Calcium 8.6 (8.4-10.2) mg/dL Total Bilirubin 0.2 (0.2-1.3) mg/dL AST 21 (14-36) IU/L ALT 15 (<35) IU/L Alkaline Phosphatase 117 (38-126) U/L Total Protein 7.2 (6.3-8.2) g/dL Albumin 3.9 (3.5-5.0) g/dL Globulin 3.3 (1.7-4.1) g/dL Albumin/Globulin Ratio 1.2 (1.0-2.8) Lipase 78 (23-300) U/L HCG, Quant < 2.39 mIU/mL SARS-CoV-2 (PCR) Negative (Negative) Influenza A (RT-PCR) Flu a negative (NEGATIVE) Influenza B (RT-PCR) Flu b negative (NEGATIVE) RSV (PCR) Negative (Negative) Point of Care Testing Test Results Negative Urine Dip Bedside Urine Glucose Negative Bedside Urine Bilirubin - Negative Bedside Urine Ketone - Negative Urine Specific Mershon 1.015 Bedside Urine Occult Blood - Negative Bedside Urine pH 6.5 Bedside Urine Protein - Negative Bedside Urine Urobilinogen - Negative Bedside Urine Nitrite - Negative Bedside Urine Leukocytes - Negative Esterase ECG Data Attestation: I personally reviewed and interpreted this ECG as follows: Interpretation: 0107, normal sinus rhythm with rate of 93, no obvious ST segment elevation or depression changes. ME 138, QRS 78, QTC 435. MDM Narrative Medical decision making narrative: 35-year-old female with 5 days duration cough and nausea and vomiting and loose stools, afebrile, abdomen benign, lungs clear, no oxygen requirement. Likely viral syndrome. Labs pending. Lab data: White blood cell count 9100, hemoglobin 12.6, platelets adequate. Glucose 87. Normal renal function, serum CO2, electrolytes. Normal liver functions. Lipase normal. COVID flu RSV negative. UA dip negative including for ketones. Urine negative. No stool specimen for testing. Patient had concern about feeling dehydrated, no urine ketones noted, IV fluids given. Oral fluid challenge, ambulated. Home pack ondansetron. Discharged home. Return precautions discussed. Discharge Plan Departure Patient Disposition: Home Clinical Impression: Viral syndrome, Nausea vomiting and diarrhea, Cough Instructions: DI for Viral Syndrome Activity Restrictions/Additional Instructions: Recent 5 days of nausea and vomiting and diarrhea, also cough. Concerned that you might be dehydrated, although urinalysis did not show ketones that you might expect with significant dehydration. IV fluids nonetheless given. Antinausea medication given. Able to take oral fluids. Screening labs are reassuring. No stool received for lab testing. COVID/flu/RSV swab test was negative. Likely viral syndrome. Advised use of Tylenol as needed for any fevers. Take plenty of fluids. Consider drinking Gatorade/Powerade. We will give ondansetron antinausea medication home pack for discharge. Recheck with your regular doctor tomorrow Sunday during regular hours if symptoms persist. Return to this/nearest emergency department for any change worsening symptoms or any concerns prior. Prescriptions: No Action hydrocortisone acetate [Anusol-HC] 25 MG suppository 25 mg R BID Qty: 30 3RF pantoprazole [Protonix] 40 mg tablet,delayed release (DR/EC) 40 mg PO DAILY Qty: 30 0RF ondansetron 4 mg tablet,disintegrating 4 mg PO TID-QID PRN (Reason: nausea and vomiting) Qty: 20 0RF Referrals: Miscellaneous,Doctor, MD [Primary Care Provider, Medical] Stand Alone Forms: Patient Portal/API
[2025-04-05] MEDS: ONDANSETRON 4 MG ODT PREPACK 1 BOTTLE MISC (05:19)
== END 2025-04-05 05:29 | disposition home or self-care (01) ==
PROVIDERS: Emergency Provider Emergency Medicine
DX: B34.9 Viral infection, unspecified (principal); R11.2 Nausea with vomiting, unspecified; R19.7 Diarrhea, unspecified; R05.9 Cough, unspecified; R10.10 Upper abdominal pain, unspecified
CPT/HCPCS: 36415; 80053; 81003; 81025; 83690; 84702; 85025; 87637; 93005; 93010; 99283; 99284

== ENCOUNTER 2025-04-18 00:26 | Emergency (ER) | payer OTHER, MEDICAID, SELFPAY ==
[2025-04-18] VITALS (8 sets, daily range): BP systolic 84–114; BP diastolic 47–75; PULSE 85–104; RESP 16–23; TEMP 37.1; O2SAT 96–100; BMI 31.7
--- NOTE | 2025-04-18 00:59 | ED.BACK ---
HPI - Back Pain/Injury General Chief Complaint: Back Pain/Injury Stated Complaint: Back Pain Time Seen by Provider: 04/18/25 00:32 Source: patient History of Present Illness HPI Narrative: 35-year-old female back pain radiating down to the right buttocks and thigh region with no significant relief with 5% lidocaine patch. She has seen chronic pain management and walker [facility] in the past but has not had any significant relief given the treatment modalities she has had thus far. Patient denies bowel or bladder incontinence fever, chills, urinary symptoms, abdominal pain, or recent trauma to the area. She is having difficulty straightening out her right leg now, as a result of the pain. Other than what is stated 14 point review of system is negative. Related Data Previous Rx's ?Medication ?Instructions ?Recorded hydrocortisone acetate 25 mg 25 mg R BID #30 supp 07/31/17 rectal suppository (Anusol-HC) ondansetron 4 mg disintegrating 4 mg PO TID-QID PRN nausea and 10/29/22 tablet vomiting #20 tabs pantoprazole 40 mg tablet,delayed 40 mg PO DAILY #30 tabs 10/29/22 release (Protonix) Allergies Allergy/AdvReac Type Severity Reaction Status Date / Time Penicillins Allergy Verified 04/18/25 00:40 Review of Systems Review of Systems ROS Unobtainable: All systems reviewed & are unremarkable except as noted in HPI and below Patient History Medical History (Updated 04/18/25 @ 02:45 by Valeriy Zavala DO) Chronic back pain Surgical History History of cholecystectomy Social History marital status: unmarried,single number of children: 2 alcohol intake: former substance use type: amphetamines and methamphetamine tobacco type: vaping alcohol intake frequency: 0-2 drinks per day Exam Narrative Exam Narrative: GENERAL: [35] year old patient appears stated age. Well-developed patient, in mild distress. HEAD: Atraumatic. Normocephalic. EYES: Pupils equal round and reactive. Extraocular motions intact. No scleral icterus. No injection or drainage. NECK: Trachea midline. Non tender CARDIOVASCULAR: Regular rate and rhythm without murmurs, gallops, or rubs. RESPIRATORY: Clear to auscultation. Breath sounds equal bilaterally. No wheezes, rales, or rhonchi. GASTROINTESTINAL: Abdomen soft, non-tender, nondistended. EXTREMITIES: No edema or joint tenderness. BACK: R paralumbosacral region TTP L4-5 S1 motor sensory intact +2 DP +2 PT cap refill less than 2 seconds NEURO: AOx3. SKIN: No rash or erythema of visible areas Initial Vital Signs Initial Vital Signs: Vital Signs Temperature 98.7 F 04/18/25 00:40 Pulse Rate 104 H 04/18/25 00:40 Respiratory Rate 16 04/18/25 00:40 Blood Pressure 114/75 04/18/25 00:40 Pulse Oximetry 99 04/18/25 00:40 Oxygen Delivery Method Room Air 04/18/25 00:40 Course Vital Signs Vital signs: Vital Signs - 8 hr 04/18/25 00:40 Temperature 98.7 F Pulse Rate 104 H Respiratory Rate 16 Blood Pressure 114/75 Pulse Oximetry 99 Oxygen Delivery Method Room Air MDM - Back Pain/Injury Imaging Data Extremity x-ray #1: Radiologist's Impression: [place] [address] CT Scan Report Signed Patient: Deepti Araujo MR#: [id number] : 1990 Acct:[id number] Age/Sex: 35 / F Date of Service: 04/18/25 Loc: ED Accession Number: [id number] Procedure: CT lumbar spine wo con Ordering Provider: Valeriy Zavala D.O. PROCEDURE: CT LUMBAR SPINE WO CON INDICATIONS: back pain TECHNIQUE: Noncontrast 3 mm thick sections acquired from the T12 level to the sacrum. Sagittal and coronal reformats were constructed. For radiation dose reduction, the following was used: automated exposure control. COMPARISON: [facility], MR, MR LUMBAR SPINE WITHOUT CONTRAST, 09/03/2023, 18:10. [facility], CR, XR LUMBAR SPINE 2 OR 3 VIEWS, 05/14/2024, 19:09. FINDINGS: Image quality: Excellent. Bones: There is transitional anatomy with appearance of lumbarization of the 1st sacral vertebral body. In keeping with prior nomenclature, vertebral bodies are labeled 1 through 5. No visualized fracture or dislocation. No suspicious osseous lesions. Minimal scattered disc bulges without appreciable spinal stenosis or foraminal narrowing. Soft tissues: No retroperitoneal masses or hematomas. Visualized aorta is normal in caliber. IMPRESSION: No visualized fracture. Scattered minimal degenerative changes relatively stable compared to prior exam. MDM Narrative Medical decision making narrative: All lab work vital signs nurse triage note medication list previous ER visits in all imaging studies reviewed. CT lumbar scan showed no visualized fracture scattered minimal degenerative changes relatively stable compared to prior exam. Patient given fluids, dexamethasone, Toradol, Benadryl, droperidol. Differential diagnosis includes spondylosis, spondylolisthesis, piriformis syndrome, sciatica, chronic pain, arthritis. Patient follow up with pain management Discharge Plan Departure Patient Disposition: Home Clinical Impression: Acute exacerbation of chronic low back pain Instructions: DI for Low Back Pain Activity Restrictions/Additional Instructions: Return with new or worsening symptoms. Follow up with pain management and PCP for continuity care next week. Prescriptions: No Action hydrocortisone acetate [Anusol-HC] 25 MG suppository 25 mg R BID Qty: 30 3RF pantoprazole [Protonix] 40 mg tablet,delayed release (DR/EC) 40 mg PO DAILY Qty: 30 0RF ondansetron 4 mg tablet,disintegrating 4 mg PO TID-QID PRN (Reason: nausea and vomiting) Qty: 20 0RF Referrals: Miscellaneous,Doctor, MD [Primary Care Provider, Medical] Stand Alone Forms: Patient Portal/API
--- NOTE | 2025-04-18 01:07 | DI.CT.S_ITS ---
PROCEDURE: CT LUMBAR SPINE WO CON INDICATIONS: back pain TECHNIQUE: Noncontrast 3 mm thick sections acquired from the T12 level to the sacrum. Sagittal and coronal reformats were constructed. For radiation dose reduction, the following was used: automated exposure control. COMPARISON: [facility], MR, MR LUMBAR SPINE WITHOUT CONTRAST, 09/03/2023, 18:10. [facility], CR, XR LUMBAR SPINE 2 OR 3 VIEWS, 05/14/2024, 19:09. FINDINGS: Image quality: Excellent. Bones: There is transitional anatomy with appearance of lumbarization of the 1st sacral vertebral body. In keeping with prior nomenclature, vertebral bodies are labeled 1 through 5. No visualized fracture or dislocation. No suspicious osseous lesions. Minimal scattered disc bulges without appreciable spinal stenosis or foraminal narrowing. Soft tissues: No retroperitoneal masses or hematomas. Visualized aorta is normal in caliber. IMPRESSION: No visualized fracture. Scattered minimal degenerative changes relatively stable compared to prior exam. Dictated by: Janell Beauchamp M.D. on 04/18/2025 at 1:57 Approved by: Janell Beauchamp M.D. on 04/18/2025 at 1:59
[2025-04-18] MEDS: droPERidol 2.5 MG/ML VIAL IV (01:33)
[2025-04-18] MEDS: KETOROLAC 30 MG/ML VIAL IV (01:34)
[2025-04-18] MEDS: diphenhydrAMINE 50 MG/ML VIAL IV (01:34)
[2025-04-18] MEDS: DEXAMETHASONE 4 MG/ML VIAL IV (01:34)
[2025-04-18] MEDS: LACTATED RINGERS 1,000 ML 1000 ML IV (01:35)
== END 2025-04-18 03:00 | disposition home or self-care (01) ==
PROVIDERS: Emergency Provider Family Medicine
DX: M54.50 Low back pain, unspecified (principal)
CPT/HCPCS: 72131; 96361; 96374; 96375; 99283; 99284; J1100; J1200; J1790; J1885